=== PATIENT | male | born 1970 | race Caucasian/White ===

== ENCOUNTER 2016-11-26 12:33 | Emergency (ER) | payer MEDICARE, MEDICAID ==
[2016-11-26 14:07] LABS: Hematocrit 41 % (42-52); Hemoglobin 13.6 g/dl (14.0-18.0); Mean Corpuscular HGB Conc 33 g/dl (31-36); Mean Corpuscular Hemoglobin 27 pg (27-31); Mean Corpuscular Volume 79 fL (80-94); Mean Platelet Volume 8 um3 (7.4-10.4); Red Blood Count 5.15 10^6/ul (4.0-5.4); Red Cell Distribution Width 15 % (10.5-15); White Blood Count 12.1 10^3/ul (3.5-10.8)
[2016-11-26 14:24] LABS: Albumin 3.8 g/dL (3.2-5.2); BUN/Creatinine Ratio 15.9 (8-20); Calcium 9.3 mg/dL (8.6-10.3); EGFR African American 130.7 (>60); EGFR Non-African American 101.6 (>60); Globulin 3.8 g/dL (2-4); Total Bilirubin 0.4 mg/dL (0.2-1.0); Total Protein 7.6 g/dL (6.4-8.9)
--- NOTE | 2016-11-26 14:35 | ED ---
Complex/Multi-Sys Presentation - HPI Summary HPI Summary: Pt here w/ fall. Was walking down the steps to his apartment and the last 3 steps fell away from the house - pt reports he then fell forward onto the ground - LOC for a few seconds which was witnessed by - denies vomiting. Pt was lying there on the ground for a while before the ambulance came to help him - his t leg was tucked under his body and now has pain here. He also reports pain in his head, numbness/neck w/ tingling into his fingers on B/L hands. He also reports Lt shoulder pain however reports he's had this - had an MRI yesterday as he's had ongoing pain here since last fall from same steps - they were angled forward at that time and pt's reports their "slumlord" has not addressed it yet. He had a head injury in September as a result of this original fall from steps and has been following with the [facility] since. Per , pt has been making progress until today's injury where he's not acting like himself. NOTE: pt has DM and has been treating a Rt sided foot wound through Dr. Mason. - History Of Current Complaint Chief Complaint: EDExtremityLower Time Seen by Provider: 11/26/16 12:49 Hx Obtained From: Patient, Family/Rice Farmer - - Allergies/Home Medications Allergies/Adverse Reactions: Allergies Allergy/AdvReac Type Severity Reaction Status Date / Time Onion Allergy Severe Difficulty Verified 11/18/16 12:43 Breathing PMH/Surg Hx/FS Hx/Imm Hx Previously Healthy: No - recovering from concussion, Lt shoulder pain Endocrine/Hematology History: Reports: Hx Diabetes Cardiovascular History: Reports: Hx Hypertension Denies: Hx Pacemaker/ICD Respiratory History: Denies: Hx Asthma GI History: Reports: Other GI Disorders - acid reflex History: Denies: Hx Renal Disease Musculoskeletal History: Reports: Other Musculoskeletal History - restless leg, tourettes; chronic Lt shoulder pain Sensory History: Denies: Hx Hearing Aid Neurological History: Reports: Other Neuro Impairments/Disorders - post concussive syndrome Psychiatric History: Denies: Hx Panic Disorder - Surgical History Surgery Procedure, Year, and Place: left leg fracture,appy,left arm fracture, cervical SPACERS X3, rct and bicep RIGHT ARM, finger pins LEFT THUMB/LEFT PINKY -LEFT POINTER FINGER SEWED BACK ON Infectious Disease History: No Infectious Disease History: Denies: Traveled Outside the [place] in Last 30 Days - Family History Known Family History: Positive: Hypertension - Social History Occupation: Disabled Lives: With Family Alcohol Use: None Hx Substance Use: No Substance Use Type: Reports: None Hx Tobacco Use: No Smoking Status (MU): Never Smoked Tobacco Review of Systems Negative: Fever, Chills Positive: Photophobia - chronic since last head injury in September 2016 Negative: Epistaxis Positive: Chest Pain - hurt to touch - s/p fall - no CP before fall Negative: Shortness Of Breath, Cough Positive: Abdominal Pain - hurts to touch. Negative: Vomiting, Diarrhea, Nausea Negative: incontinence Musculoskeletal: Other - see HPI Neurological: Other - see HPI Psychological: Other - blunted All Other Systems Reviewed And Are Negative: Yes Physical Exam Triage Information Reviewed: Yes Vital Signs On Initial Exam: Initial Vitals Temp Pulse Resp BP Pulse Ox 98.5 F 107 18 132/77 94 11/26/16 12:39 11/26/16 12:39 11/26/16 12:39 11/26/16 12:39 11/26/16 12:39 Vital Signs Reviewed: Yes Appearance: Positive: Pain Distress - pt is slow to respond - states this is not normal, Obese Skin: Positive: Warm - mild, superficial abrasion over Rt anterior knee/patella - no edema, no ecchymosis; no other areas of ecchymosis or edema noted, Dry Head/Face: Positive: Normal Head/Face Inspection - wearing sunglasses Eyes: Positive: Normal, EOMI, TAQUERIA - photophobia, Conjunctiva Clear ENT: Positive: Hearing grossly normal, Pharynx normal, TMs normal - no hemotympanum. Negative: Nasal drainage - no signs of epistaxis, no clear fluid drainage Dental: Negative: Dental Fracture @ Neck: Positive: Supple Respiratory/Lung Sounds: Positive: Clear to Auscultation, Breath Sounds Present. Negative: Rales, Rhonchi, Subcutaneous Emphysema, Tracheal Deviation, Wheezes Cardiovascular: Positive: Normal, RRR, Pulses are Symmetrical in both Upper and Lower Extremities, S1, S2 Abdomen Description: Positive: Guarding, Other: - generalized TTP; vast ab girth Bowel Sounds: Positive: Present Musculoskeletal: Positive: Pain @ - Rt LE TTP - thigh, knee and tibial region Neurological: Positive: Alert, Oriented to Person Place, Time, CN Intact II-III , Other - reports decreased sensation over phalanges on Lt hand (baseline since lt shoulder injury a few months ago - MRI yesterday - results pending) Psychiatric: Positive: Other - blunted Diagnostics - Vital Signs Vital Signs Temp Pulse Resp BP Pulse Ox 11/26/16 12:39 98.5 F 107 18 132/77 94 - Laboratory Lab Results: Lab Results 11/26/16 11/26/16 11/26/16 Range/Units 12:53 14:00 14:00 WBC 12.1 H (3.5-10.8) 10^3/ul RBC 5.15 (4.0-5.4) 10^6/ul Hgb 13.6 L (14.0-18.0) g/dl Hct 41 L (42-52) % MCV 79 L (80-94) fL MCH 27 (27-31) pg MCHC 33 (31-36) g/dl RDW 15 (10.5-15) % Plt Count 327 (150-450) 10^3/ul MPV 8 (7.4-10.4) um3 Neut % (Auto) 76.9 (38-83) % Lymph % (Auto) 14.4 L (25-47) % Hunt % (Auto) 5.8 (1-9) % Eos % (Auto) 1.8 (0-6) % Baso % (Auto) 1.1 (0-2) % Absolute Neuts (auto) 9.3 H (1.5-7.7) 10^3/ul Absolute Lymphs (auto) 1.7 (1.0-4.8) 10^3/ul Absolute Monos (auto) 0.7 (0-0.8) 10^3/ul Absolute Eos (auto) 0.2 (0-0.6) 10^3/ul Absolute Basos (auto) 0.1 (0-0.2) 10^3/ul Absolute Nucleated RBC 0 10^3/ul Nucleated RBC % 0 Sodium 134 (133-145) mmol/L Potassium 4.0 (3.5-5.0) mmol/L Chloride 98 L (101-111) mmol/L Carbon Dioxide 27 (22-32) mmol/L Anion Gap 9 (2-11) mmol/L BUN 13 (6-24) mg/dL Creatinine 0.82 (0.67-1.17) mg/dL Est GFR ( Amer) 130.7 (>60) Est GFR (Non-Af Amer) 101.6 (>60) BUN/Creatinine Ratio 15.9 (8-20) Glucose 209 H (70-100) mg/dL POC Glucose (mg/dL) 264 H (74-106) mg/dL Calcium 9.3 (8.6-10.3) mg/dL Total Bilirubin 0.40 (0.2-1.0) mg/dL AST 14 (13-39) U/L ALT 13 (7-52) U/L Alkaline Phosphatase 75 (34-104) U/L Total Creatine Kinase 62 (10-223) U/L Troponin I Pending Total Protein 7.6 (6.4-8.9) g/dL Albumin 3.8 (3.2-5.2) g/dL Globulin 3.8 (2-4) g/dL Albumin/Globulin Ratio 1.0 (1-3) Result Diagrams: 11/26/16 14:00 11/26/16 14:00 Lab Statement: Any lab studies that have been ordered have been reviewed, and results considered in the medical decision making process. Re-Evaluation - Re-Evaluation First Eval Change: Improved - muscle tension reduced s/p toradol and diazepam - pt continues to have vertigo - offered medication but he declines Complex Multi-Symp Course/Dx Course Of Treatment: Pt presents w/ fall froward from steps that fell away from the house structure. He landed prone and had a LOC for a few seconds per . His Rt leg was trapped under his body for about 30 mins until EMS arrived and transported him here. His clinical evaluation and imaging ruled out fractures, hemorrhages, dislocations however pt appears to have a severe concussion, exacerbated neck pain and Rt knee pain/weakness. He was offered medication for his vertigo but declined. He requested a soft collar for his neck which immediately provided the relief he was looking for, especially on the Rt side of his neck. He also attempted to ambulate with a walker which he was able to do but felt his RT knee was unstable so a knee immobilizer was placed here. He was able to ambulate better after this and d/c'd home with instructions for close follow-up with his PCP regarding [facility] issues and the [facility] where he's been following with specialists for his head injury from September. Explained danger s/sx of when to return to ED - pt and voice understanding. Steroids were considered in pt's tx plan for concussion sx however given his diabetic status and chronic healing foot wound, it was decided to abstain from said tx at this time. - Diagnoses Provider Diagnoses: Fall (on) (from) other stairs and steps, initial encounter, Concussion, Right knee sprain, Vertigo - Physician Notifications Discussed Care Of Patient With: Amanda Holt PA-C Discharge - Discharge Plan Condition: Improved Disposition: HOME Prescriptions: Diazepam TAB(*) [Valium TAB(*)] 5 mg PO TID PRN #[id number] tab MDD 3 PRN Reason: Pain Patient Education Materials: Knee Sprain (ED), Muscle Strain (ED), How to Choose and Use a Walker (GEN), Concussion (ED), Knee Immobilizer (ED) Referrals: Arjun Colon MD [Primary Care Provider] - Additional Instructions: Follow-up with [facility] this week for repeat head injury with neurological symptoms - call tomorrow to schedule an appointment Follow-up with PCP this week for knee pain and muscle strains - call tomorrow to schedule an appointment *If any symptoms worsen, return to ED
[2016-11-26] MEDS ORDERED: Iodixanol* (CONTRAST) 320 MG/ML 100 ML SDV IV ONE (14:50)
--- NOTE | 2016-11-26 15:22 | RAD ---
Indication: Fall, prior concussion. CT of the head was performed without IV contrast. Ventricular structures are midline. No midline shift is noted. The extraction spaces are unremarkable. There is no evidence of intracranial mass or hemorrhage. No other high or low density lesions are identified. The study is limited due to suboptimal positioning. Mucous retention cyst is noted in the right maxillary sinus. IMPRESSION: No intracranial lesion is identified.
--- NOTE | 2016-11-26 15:26 | RAD ---
HISTORY: Fall from height, chest, abdomen, and pelvic pain COMPARISONS: October 01, 2016 TECHNIQUE: Multiple contiguous axial CT scans were obtained of the chest, abdomen, and pelvis after the administration of intravenous contrast. Coronal and sagittal multiplanar reformations are submitted for review.. Oral contrast was not administered. Delayed images were obtained through the abdomen FINDINGS: Evaluation is somewhat limited secondary to streak artifact from patient's arm position. CHEST NECK AND THYROID: The lower neck and thyroid are unremarkable. CHEST WALL: There is no lower cervical, axillary, or supraclavicular lymphadenopathy by size criteria. HEART AND PERICARDIUM: The heart is unremarkable. AORTA AND PULMONARY VASCULATURE: The aorta and pulmonary vasculature are normal. MEDIASTINUM: There is no mediastinal lymphadenopathy by size criteria. ROBINSON: There is no hilar lymphadenopathy by size criteria. AIRWAY AND ESOPHAGUS: The airway is unremarkable, without endobronchial filling defect. The esophagus is grossly normal. LUNG PARENCHYMA: The lungs are clear. PLEURA: No pleural abnormalities are noted. BONES AND SOFT TISSUES: Mild degenerative changes are noted There is postsurgical change to the lower cervical spine and left humerus. ABDOMEN/PELVIS: LIVER: The liver is enlarged measuring 29 cm in long axis. BILE DUCTS: There is no intrahepatic or extrahepatic biliary dilatation. GALLBLADDER: The gallbladder is normal, without pericholecystic inflammatory change. PANCREAS: The pancreas is normal, without mass or ductal dilatation. SPLEEN: The spleen is enlarged measuring 19 cm in long axis. UPPER GI TRACT: Evaluation of the gastrointestinal tract is limited by incomplete gastric distention. The upper GI tract is unremarkable. SMALL BOWEL \T\ MESENTERY: The small bowel is normal in contour, course, and caliber. There is no obstruction or dilatation. COLON: The colon is normal in contour, course, caliber. There is no pericolonic inflammatory change. ADRENALS: Normal bilaterally. KIDNEYS: The kidneys are normal in shape, size, contour, and axis. There is no hydronephrosis or nephrolithiasis. BLADDER: The bladder is smooth in contour. PELVIC ORGANS: The prostate gland is normal. The seminal vesicles are symmetric. AORTA: The aorta is normal. IVC: Unremarkable LYMPH NODES: There is no lymphadenopathy by size criteria. Again noted are mildly prominent, subcentimeter short axis, iliac chain lymph nodes. ABDOMINAL WALL: There is no evidence for abdominal wall hernia. BONES: There are mild diffuse degenerative changes. OTHER: There is no active arterial extravasation. IMPRESSION: NO ACUTE CT PATHOLOGY OF THE VISUALIZED CHEST, ABDOMEN, OR PELVIS. STABLE HEPATOSPLENOMEGALY
--- NOTE | 2016-11-26 15:32 | RAD ---
INDICATION: Trauma, neck pain, fall from a height. COMPARISON: Comparison is made with a prior CT of the cervical spine from September 28, 2016. TECHNIQUE: Contiguous axial sections were obtained from the skull base through the T2 vertebra. Images were reconstructed in the sagittal and coronal planes. FINDINGS: The vertebra are in normal alignment. No fracture is seen. The patient is status post fusion at the C3-C4 and C5-C6 levels. Note is made of metallic prostheses within the disc spaces. At the C2-C3 level there is mild posterior uncinate process spurring and moderate hypertrophic changes within the facet joint on the right side. No significant spinal canal narrowing is present. There is mild neural foraminal narrowing on the left side and moderate neural foraminal narrowing on the right side. At the C3-C4 level the patient is status post intervertebral disc fusion. There is posterior uncinate process spurring. There is moderate hypertrophic changes within the facet joint on the right side. Evaluation of the spinal canal is limited due to metallic artifact from the prosthesis. There is moderate to severe neural foraminal narrowing on the right side and mild neural foraminal narrowing on the left side. At the C4-C5 level there is mild posterior uncinate process spurring. No significant spinal canal narrowing is present. There is moderate bilateral neural foraminal narrowing. At the C5-C6 level the patient is status post intervertebral disc fusion. Evaluation of the spinal canal is limited due to metallic artifact. There is mild posterior uncinate process spurring. There is moderate neural foraminal narrowing on the right side and mild neural foraminal narrowing on the left side. At the C6-C7 level there is mild posterior uncinate process spurring which appears to be associated with a mild broad-based disc bulge. No significant spinal canal narrowing is present. Neural foramen appear patent on both sides. There is fusion of the C2-C3 and C3-C4 facet joints on the right side. IMPRESSION: 1. NO EVIDENCE FOR FRACTURE. 2. STATUS POST DISC FUSION AT THE C3-C4 AND C5-C6 LEVELS. 3. MILD TO MODERATE CERVICAL SPONDYLOSIS.
[2016-11-26] MEDS ORDERED: Ketorolac INJ* 30 MG/ML 1 ML VIAL IV PUSH ONE (15:41)
[2016-11-26] MEDS ORDERED: Diazepam SYRINGE* 5 MG/ML 2 ML SYRINGE (10 MG total) IV ONE (16:05)
--- NOTE | 2016-11-26 16:14 | RAD ---
HISTORY: Fall, right ear pain COMPARISONS: None VIEWS: 2, frontal and crosstable lateral views of the right femur FINDINGS: BONE DENSITY: Normal. BONES: There is no displaced fracture. JOINTS: There is mild osteoarthritis of the right hip and right knee ALIGNMENT: There is no dislocation. SOFT TISSUES: Unremarkable. OTHER FINDINGS: None. IMPRESSION: NO ACUTE OSSEOUS INJURY. IF SYMPTOMS PERSIST, RECOMMEND REPEAT IMAGING.
--- NOTE | 2016-11-26 16:15 | RAD ---
Indication: Right leg pain after a fall Comparison: None. Technique: AP and lateral views right lower leg. Report: Degenerative changes of the right knee include mild narrowing of the medial lateral compartment. Otherwise the bones are appropriately aligned. There is no acute fracture, dislocation or other focal abnormality. The soft tissues appear grossly normal. IMPRESSION: No radiographically apparent acute abnormality of the right lower leg. If the patient's symptoms persist, follow-up imaging is recommended.
[2016-11-26 18:00] VITALS: BP 125/69
== END 2016-11-26 17:57 | disposition home or self-care (01) ==
LOC: ED 12:33
DX: S06.0X0A Concussion without loss of consciousness, initial encounter (principal); S83.91XA Sprain of unspecified site of right knee, initial encounter; R42 Dizziness and giddiness; H53.149 Visual discomfort, unspecified; R07.9 Chest pain, unspecified; R10.9 Unspecified abdominal pain; W10.9XXA Fall (on) (from) unspecified stairs and steps, initial encounter; Y93.9 Activity, unspecified; Y92.9 Unspecified place or not applicable; Y99.9 Unspecified external cause status
CPT/HCPCS: 36415; 70450; 71260; 72125; 74177; 80053; 82550; 84484; 85025; 99282; J1885; J3360; Q9967